=== PATIENT | male | born 1955 | race Caucasian/White ===

== ENCOUNTER 2018-06-24 00:44 | Outpatient (CLI) | payer BC, SELFPAY ==
--- NOTE | 2018-06-24 08:57 | DI.REPORT_ITS ---
SYMPTOM/DIAGNOSIS: RT SHOULDER PAIN, CHRONIC M25.511. CERVICAL RADICULOPATHY RT SUSPECT M54.12 CERVICAL SPINE: 06/24 Five views were obtained. There is disc space narrowing at C5-6 and C6-7. Mild hypertrophic spurring of the vertebral end plates and facet joints noted in mid and lower cervical spine. Neural foramina appear fairly well maintained on oblique views. No other significant bony abnormality seen. CONCLUSION: Mild DJD of the cervical spine.
== END 2018-06-24 00:45 ==
PROVIDERS: PCP Nurse Practitioner; Visit Provider Nurse Practitioner
DX: M25.511 Pain in right shoulder (principal); M54.12 Radiculopathy, cervical region; M50.323 Other cervical disc degeneration at C6-C7 level; M50.322 Other cervical disc degeneration at C5-C6 level
CPT/HCPCS: 72050

== ENCOUNTER 2018-07-14 09:20 | Outpatient (REF) | payer BC, SELFPAY ==
[2018-07-14 14:22] LABS: Cholesterol 203 mg/dL (50-200); Glucose 101 mg/dL (70-100); HDL Cholesterol 97 mg/dL (40-60); LDL CHOLESTEROL 99 mg/dL (<100); Triglyceride 44 mg/dL (30-150)
== END 2018-07-14 09:40 ==
LOC: NCHCN 09:20
PROVIDERS: PCP Nurse Practitioner; Visit Provider Nurse Practitioner
DX: Z00.00 Encounter for general adult medical examination without abnormal findings (principal); Z13.1 Encounter for screening for diabetes mellitus; Z13.220 Encounter for screening for lipoid disorders
CPT/HCPCS: 80061; 82947; 83721